=== PATIENT | female | born 1975 | race Caucasian/White ===

== ENCOUNTER 2017-06-30 14:29 | Inpatient (IN) | payer BC, MEDICAID, OTHER ==
[~2017-06-30] VITALS: Ht 154.9 cm; Wt 93.0 kg
[2017-06-30] MEDS ORDERED: CALCIUM PO (14:40)
[2017-06-30] MEDS ORDERED: FERROUS PO (14:40)
[2017-06-30] MEDS ORDERED: PNV1TABL76 MT (14:40)
[2017-06-30] MEDS ORDERED: FOLI-43 PO (14:40)
[2017-06-30] MEDS ORDERED: SODIUM CHLORIDE 0.9% 1,000 ML IV ONE (15:08)
[2017-06-30 15:39] LABS: BASOPHILS % 0.3 % (0.0-2.0); EOSINOPHILS % 0.9 % (0.0-5.0); HEMATOCRIT. 39.4 % (36.0-48.0); HEMOGLOBIN. 13.2 g/dL (12.0-16.0); LYMPHOCYTES % 18.4 % (20.0-50.0); MEAN PLATELET VOLUME 7.8 fl (7.4-10.4); MONOCYTES % 6.9 % (2.0-8.0); NEUTROPHILS % 73.5 % (40.0-76.0); PLATELET 326 x1000/uL (130-400); RED BLOOD CELL COUNT 4.38 mill/uL (4.2-5.4)
[2017-06-30 15:47] LABS: CHLORIDE 105 mEq/L (98-107)
[2017-06-30 15:51] LABS: CLARITY URINE CLEAR (CLEAR); COLOR URINE YELLOW (YELLOW); GLUCOSE URINE 2+ (NEGATIVE); KETONES URINE 1+ (NEGATIVE); LEUKOCYTE ESTERASE URINE NEGATIVE (NEGATIVE); NITRITE URINE POSITIVE (NEGATIVE); OCCULT BLOOD URINE NEGATIVE (NEGATIVE); PROTEIN URINE NEGATIVE (NEGATIVE); SPECIFIC GRAVITY URINE 1.029 (1.005-1.030); UROBILINOGEN URINE 0.2 E.U./dL (0.2-1.0)
[2017-06-30 15:51] LABS: CARBON DIOXIDE 24 mEq/L (21-32)
[2017-06-30 16:16] LABS: B-HCG QUANTITATIVE 14225 mIU/mL (<3)
[2017-06-30] MEDS ORDERED: LABETALOL 5MG/ML SYR 20 MG/4 ML SYRINGE IV ONE (17:00)
[2017-06-30] MEDS ORDERED: ACETAMINOPHEN 325MG TABLET PO PRN (18:15)
[2017-06-30] MEDS ORDERED: ONDANSETRON HCL 4MG/2ML VIAL IV PRN (18:15)
[2017-06-30] MEDS ORDERED: MAGNESIUM/ALUMINUM HYDROXIDE/SIMETHICONE 30ML UDC PO PRN (18:15)
[2017-06-30] MEDS ORDERED: ENOXAPARIN 40MG/0.4ML SYR SUBCUT SCH (18:15)
[2017-06-30] MEDS ORDERED: IPRATROPIUM/ALBUTEROL 0.5-3(2.5)MG/3ML NEB INH PRN (18:15)
[2017-06-30 19:45] LABS: *AMPHETAMINES SCREEN URINE NEGATIVE (NEGATIVE); *BARBITURATES SCREEN URINE NEGATIVE (NEGATIVE); *BENZODIAZEPINES SCREEN URINE NEGATIVE (NEGATIVE); *COCAINE SCREEN URINE NEGATIVE (NEGATIVE); CANNABINOID URINE SCREEN NEGATIVE (NEGATIVE); METHADONE URINE SCREEN NEGATIVE (NEGATIVE); OPIATES URINE SCREEN NEGATIVE (NEGATIVE); PHENCYCLIDINE URINE SCREEN NEGATIVE (NEGATIVE)
[2017-06-30 22:55] LABS: CREATINE KINASE MB FRACTION 1.2 ng/mL (0.5-3.6); TROPONIN I < 0.02 ng/mL (0.00-0.04)
[2017-06-30 23:02] LABS: CREATINE KINASE 88 IU/L (26-192)
[2017-07-01] VITALS (7 sets, daily range): BP systolic 102–125; BP diastolic 62–78
[2017-07-01] MEDS: METHYLDOPA 250MG TABLET PO SCH ×3 (06:28→21:24)
[2017-07-01] MEDS ORDERED: POTASSIUM CHLORIDE 20MEQ TABLET SR PO NR (08:00)
[2017-07-01 08:37] LABS: BASOPHILS % 0.2 % (0.0-2.0); EOSINOPHILS % 1.4 % (0.0-5.0); HEMATOCRIT. 35.9 % (36.0-48.0); HEMOGLOBIN. 12.1 g/dL (12.0-16.0); LYMPHOCYTES % 21.1 % (20.0-50.0); MEAN CORPUSCULAR HEMOGLOBIN 30.5 pg (28.0-32.0); MEAN CORPUSCULAR VOLUME 90.8 fL (81.0-99.0); MEAN PLATELET VOLUME 7.4 fl (7.4-10.4); MONOCYTES % 5.8 % (2.0-8.0); NEUTROPHILS % 71.5 % (40.0-76.0); PLATELET 304 x1000/uL (130-400); RED BLOOD CELL COUNT 3.96 mill/uL (4.2-5.4); RED CELL DISTRIBUTION WIDTH 14.4 % (11.6-14.6)
[2017-07-01] MEDS ORDERED: ENOXAPARIN 30MG/0.3ML SYR SUBCUT SCH (09:00)
[2017-07-01 09:03] LABS: CARBON DIOXIDE 25 mEq/L (21-32); CHLORIDE 108 mEq/L (98-107); CREATINE KINASE 58 IU/L (26-192); HDL CHOLESTEROL 42 mg/dL (40-59); LDL CHOLESTEROL 104 mg/dL (5-100); TROPONIN I < 0.02 ng/mL (0.00-0.04)
[2017-07-01] MEDS: FERROUS SULFATE 325MG TABLET PO SCH (09:05)
[2017-07-01] MEDS: FOLIC ACID 1MG TABLET PO SCH (09:05)
[2017-07-01] MEDS: PRENATAL VIT/FE FUMARATE/FA TABLET PO SCH (09:06)
[2017-07-01] MEDS: CALCIUM CARBONATE 1250MG TABLET (500MG ELEMENTAL CALCIUM) PO SCH (09:06)
[2017-07-02 04:00] VITALS: BP 100/59
[2017-07-02] MEDS: METHYLDOPA 250MG TABLET PO SCH ×3 (05:42→21:07)
[2017-07-02 08:00] VITALS: BP 117/69
[2017-07-02] MEDS: FERROUS SULFATE 325MG TABLET PO SCH (08:07)
[2017-07-02] MEDS: PRENATAL VIT/FE FUMARATE/FA TABLET PO SCH (08:07)
[2017-07-02] MEDS: FOLIC ACID 1MG TABLET PO SCH (08:07)
[2017-07-02] MEDS: CALCIUM CARBONATE 1250MG TABLET (500MG ELEMENTAL CALCIUM) PO SCH (08:07)
[2017-07-02 12:00] VITALS: BP 112/65
[2017-07-02 16:00] VITALS: BP 111/65
[2017-07-02 20:00] VITALS: BP 128/57
[2017-07-02] MEDS: NITROFURANTOIN 100MG M/M CAPSULE PO SCH (21:06)
[2017-07-02 23:53] VITALS: BP 120/76
[2017-07-03 04:00] VITALS: BP 106/60
[2017-07-03] MEDS: METHYLDOPA 250MG TABLET PO SCH (06:00)
[2017-07-03 08:00] VITALS: BP 118/81
[2017-07-03] MEDS: PRENATAL VIT/FE FUMARATE/FA TABLET PO SCH (09:12)
[2017-07-03] MEDS: FOLIC ACID 1MG TABLET PO SCH (09:12)
[2017-07-03] MEDS: FERROUS SULFATE 325MG TABLET PO SCH (09:12)
[2017-07-03] MEDS: NITROFURANTOIN 100MG M/M CAPSULE PO SCH (09:13)
[2017-07-03] MEDS: CALCIUM CARBONATE 1250MG TABLET (500MG ELEMENTAL CALCIUM) PO SCH (09:13)
[2017-07-03 11:41] VITALS: BP 101/69
[2017-07-03 12:00] VITALS: BP 108/65
[2017-07-03] MEDS ORDERED: NITROFURANTOIN 100MG M/M CAPSULE PO SCH (17:00)
== END 2017-07-03 13:30 | disposition home or self-care (01) | DRG 566 ==
LOC: ER 14:29 → 7WST 17:20 → ENRESERV 23:18
PROVIDERS: ADMIT Internal Medicine; ATTEND Internal Medicine
DX: O44.01 Complete placenta previa NOS or without hemorrhage, first trimester (principal); R65.10 Systemic inflammatory response syndrome (SIRS) of non-infectious origin without acute organ dysfunction; E44.0 Moderate protein-calorie malnutrition; O23.41 Unspecified infection of urinary tract in pregnancy, first trimester; E66.9 Obesity, unspecified; O13.1 Gestational [pregnancy-induced] hypertension without significant proteinuria, first trimester; O34.81 Maternal care for other abnormalities of pelvic organs, first trimester; O99.281 Endocrine, nutritional and metabolic diseases complicating pregnancy, first trimester; E16.2 Hypoglycemia, unspecified; O99.011 Anemia complicating pregnancy, first trimester; D64.9 Anemia, unspecified; O99.211 Obesity complicating pregnancy, first trimester; N83.10 Corpus luteum cyst of ovary, unspecified side; O09.521 Supervision of elderly multigravida, first trimester; B96.20 Unspecified Escherichia coli [E. coli] as the cause of diseases classified elsewhere; Z3A.13 13 weeks gestation of pregnancy; Z68.38 Body mass index [BMI] 38.0-38.9, adult; O25.11 Malnutrition in pregnancy, first trimester; O26.891 Other specified pregnancy related conditions, first trimester
CPT/HCPCS: 36415; 76801; 80053; 80061; 80305; 81001; 82550; 82553; 82962; 83735; 84443; 84484; 84702; 85025; 86850; 86900; 87077; 87086; 87186; 93005; 93306; 93970; 96361; 96374; 99285; J3490; J7030

== ENCOUNTER 2017-07-31 05:58 | Emergency (ER) | payer MEDICAID ==
[~2017-07-31] VITALS: Ht 154.9 cm; Wt 96.0 kg
[~2017-07-31 05:58] MED LIST: CALCIUM PO; FERROUS PO; FOLI-43 PO; PNV1TABL76 MT
[2017-07-31] MEDS ORDERED: SODIUM CHLORIDE 0.9% 1,000 ML IV ONE (06:35)
[2017-07-31] MEDS ORDERED: ACETAMINOPHEN 325MG TABLET PO ONE (06:45)
[2017-07-31 07:05] LABS: BASOPHILS % 0.3 % (0.0-2.0); EOSINOPHILS % 3.4 % (0.0-5.0); HEMATOCRIT. 35.3 % (36.0-48.0); LYMPHOCYTES % 14.1 % (20.0-50.0); MEAN CORPUSCULAR HEMOGLOBIN 30.6 pg (28.0-32.0); MEAN CORPUSCULAR VOLUME 89.8 fL (81.0-99.0); MEAN PLATELET VOLUME 7.4 fl (7.4-10.4); MONOCYTES % 7.4 % (2.0-8.0); NEUTROPHILS % 74.8 % (40.0-76.0); PLATELET 274 x1000/uL (130-400); RED BLOOD CELL COUNT 3.93 mill/uL (4.2-5.4); RED CELL DISTRIBUTION WIDTH 13.6 % (11.6-14.6)
[2017-07-31 07:09] LABS: CLARITY URINE CLEAR (CLEAR); COLOR URINE YELLOW (YELLOW); GLUCOSE URINE TRACE (NEGATIVE); KETONES URINE NEGATIVE (NEGATIVE); LEUKOCYTE ESTERASE URINE NEGATIVE (NEGATIVE); NITRITE URINE NEGATIVE (NEGATIVE); OCCULT BLOOD URINE NEGATIVE (NEGATIVE); PROTEIN URINE NEGATIVE (NEGATIVE); SPECIFIC GRAVITY URINE 1.011 (1.005-1.030); UROBILINOGEN URINE 0.2 E.U./dL (0.2-1.0)
[2017-07-31 07:22] LABS: CARBON DIOXIDE 22 mEq/L (21-32); CHLORIDE 105 mEq/L (98-107)
[2017-07-31 07:29] LABS: B-HCG QUANTITATIVE 6257 mIU/mL (<3)
[2017-07-31 11:15] VITALS: BP 128/72
== END 2017-07-31 11:23 | disposition home or self-care (01) ==
LOC: ER 06:09
DX: O10.912 Unspecified pre-existing hypertension complicating pregnancy, second trimester (principal); O26.892 Other specified pregnancy related conditions, second trimester; R10.31 Right lower quadrant pain; Z3A.18 18 weeks gestation of pregnancy
CPT/HCPCS: 36415; 76805; 76857; 80053; 81001; 81025; 82962; 83690; 84702; 85025; 86850; 86900; 93005; 96360; 99285; J7030

== ENCOUNTER 2017-12-20 17:39 | Observation (INO) | payer OTHER ==
[~2017-12-20] VITALS: Ht 154.9 cm; Wt 96.2 kg
[2017-12-20] MEDS ORDERED: LABE300T PO (18:12)
[2017-12-20 19:15] LABS: BASOPHILS % 0.7 % (0.0-2.0); EOSINOPHILS % 0.8 % (0.0-5.0); HEMATOCRIT. 36.5 % (36.0-48.0); HEMOGLOBIN. 12.1 g/dL (12.0-16.0); LYMPHOCYTES % 16.6 % (20.0-50.0); MEAN CORPUSCULAR HEMOGLOBIN 29.3 pg (28.0-32.0); MEAN CORPUSCULAR VOLUME 88.6 fL (81.0-99.0); MEAN PLATELET VOLUME 8.3 fl (7.4-10.4); NEUTROPHILS % 76.9 % (40.0-76.0); PLATELET 295 x1000/uL (130-400); RED BLOOD CELL COUNT 4.12 mill/uL (4.2-5.4); RED CELL DISTRIBUTION WIDTH 14.8 % (11.6-14.6)
[2017-12-20 19:22] LABS: D-DIMER 3.94 mg/L FEU (<0.50); INR 0.9; PARTIAL THROMBOPLASTIN TIME 22.8 sec (23.4-31.0); PROTHROMBIN TIME 9.4 sec (9.4-11.6)
[2017-12-20 19:23] LABS: CHLORIDE 104 mEq/L (98-107)
[2017-12-20 19:46] LABS: CLARITY URINE CLEAR (CLEAR); COLOR URINE YELLOW (YELLOW); KETONES URINE 2+ (NEGATIVE); LEUKOCYTE ESTERASE URINE NEGATIVE (NEGATIVE); NITRITE URINE POSITIVE (NEGATIVE); OCCULT BLOOD URINE NEGATIVE (NEGATIVE); PH URINE 5.5 (4.5-8.0); PROTEIN URINE NEGATIVE (NEGATIVE); UROBILINOGEN URINE 0.2 E.U./dL (0.2-1.0)
== END 2017-12-20 20:30 | disposition home or self-care (01) ==
LOC: L&D 17:39
PROVIDERS: ADMIT Obstetrics & Gynecology; ATTEND Obstetrics & Gynecology
DX: Z34.93 Encounter for supervision of normal pregnancy, unspecified, third trimester (principal); Z3A.38 38 weeks gestation of pregnancy
CPT/HCPCS: 36415; 80053; 81003; 82962; 84550; 85025; 85379; 85384; 85610; 85730; 99281; G0378; J7120